=== PATIENT | male | born 1985 ===

== ENCOUNTER 2020-08-06 13:07 | Emergency (ER) | payer OTHER ==
[~2020-08-06] VITALS: Ht 170.2 cm; Wt 106.1 kg
[2020-08-06] MEDS ORDERED: COZAAR100 MG PO (13:23)
[2020-08-06] MEDS ORDERED: FENOFIBRATE145 MG PO (13:24)
== END 2020-08-06 19:31 | disposition home or self-care (01) ==
LOC: ER 13:07
DX: N20.0 Calculus of kidney (principal); M54.5 Low back pain; N17.9 Acute kidney failure, unspecified; M62.830 Muscle spasm of back